=== PATIENT | male | born 2000 ===

== ENCOUNTER 2023-04-26 20:13 | Emergency (ER) | payer OTHER ==
[~2023-04-26] VITALS: Ht 170.2 cm; Wt 72.6 kg
[2023-04-26 20:39] VITALS: BP 134/93
[2023-04-26] MEDS ORDERED: EPIPEN0.3 MG/0.3 IM (20:45)
== END 2023-04-26 20:51 | disposition home or self-care (01) ==
LOC: ER 20:13
DX: T63.441A Toxic effect of venom of bees, accidental (unintentional), initial encounter (principal); R06.02 Shortness of breath; Z88.0 Allergy status to penicillin; Z79.899 Other long term (current) drug therapy
CPT/HCPCS: 99283